=== PATIENT | female | born 1940 | race Caucasian/White ===

== ENCOUNTER 2023-05-13 17:02 | Emergency (ER) | payer OTHER ==
[~2023-05-13] VITALS: Ht 154.9 cm; Wt 53.1 kg
[2023-05-13] MEDS ORDERED: ACETAMINOPHEN ES 500 MG TABLET ONE (18:16)
[2023-05-13] MEDS: ACETAMINOPHEN ES 500 MG TABLET PO ONE (18:20)
[2023-05-13 20:35] VITALS: BP 157/78; TEMP 98.3; O2SAT 96
== END 2023-05-13 20:35 | disposition home or self-care (01) ==
LOC: ER 17:07
DX: S52.591A Other fractures of lower end of right radius, initial encounter for closed fracture (principal); M06.9 Rheumatoid arthritis, unspecified; W18.30XA Fall on same level, unspecified, initial encounter; Y93.89 Activity, other specified; Y92.89 Other specified places as the place of occurrence of the external cause; Y99.8 Other external cause status
CPT/HCPCS: 73090-TC; 73110; 73130-TC